=== PATIENT | female | born 1940 | race Caucasian/White ===

== ENCOUNTER → 2019-08-15 13:48 | Outpatient (BNVA) | payer MEDICARE, OTHER, SELFPAY | PROVIDERS: PCP Internal Medicine; Visit Provider Specialist | DX: R42 Dizziness and giddiness (principal); R26.9 Unspecified abnormalities of gait and mobility; G40.219 Localization-related (focal) (partial) symptomatic epilepsy and epileptic syndromes with complex partial seizures, intractable, without status epilepticus; G31.84 Mild cognitive impairment of uncertain or unknown etiology; Z96.89 Presence of other specified functional implants | CPT/HCPCS: 99205 ==

== ENCOUNTER 2019-08-15 16:02 | Outpatient (CLI) | payer MEDICARE, OTHER, SELFPAY ==
[2019-08-15 17:09] LABS: Vitamin B12 363 pg/mL (232-1245)
[2019-08-15 17:24] LABS: Folate Level 6.7 ng/mL (4.8-37.3)
[2019-08-20 14:21] LABS: Lacosamie (Vimpat) 15.6 mcg/mL
== END 2019-08-15 16:03 | disposition home or self-care (01) ==
LOC: LAB 16:09
PROVIDERS: PCP Internal Medicine; Visit Provider Specialist
DX: R20.0 Anesthesia of skin (principal); R56.9 Unspecified convulsions
CPT/HCPCS: 36415; 80299; 82607; 82746

== ENCOUNTER 2019-08-24 13:41 | Outpatient (CLI) | payer MEDICARE, OTHER, SELFPAY ==
--- NOTE | 2019-08-24 13:54 | XR_ITS ---
WS: [id number] XR soft tissue neck [id number] REASON FOR EXAM: VNS components FINDINGS: Stimulator electrodes are seen at the C6-C7 level on the left side overriding the articular surface set. The joints of Luschka show mild hypertrophic changes. Degenerated disc changes 3-4 4-5, C5-6.. XR/XR soft tissue neck [id number] IMPRESSION: Stimulator seen on the left side C6-C7 electrodes Degenerated disc changes C3-4, C4-C5, C5-C6.
--- NOTE | 2019-08-24 13:54 | XR_ITS ---
WS: [id number] XR chest 2V* [id number] REASON FOR EXAM: VNS components FINDINGS: A hiatal hernia is noted. A stimulator seen along the left chest wall extends to the see 6 7 vertebra as. The lung garza are well aerated. No pneumonia, pleural effusion, pulmonary edema, or mass effect. There is degenerate disc changes with remote compression in the mid thoracic area. XR/XR chest 2V* [id number] IMPRESSION: Negative chest for acute pathology Hiatal hernia Stimulator along the left chest wall.
== END 2019-08-24 13:42 | disposition home or self-care (01) ==
LOC: RADWPI 13:47
PROVIDERS: Family Provider Internal Medicine; PCP Internal Medicine; Visit Provider Licensed Practical Nurse
DX: Z96.89 Presence of other specified functional implants (principal); K44.9 Diaphragmatic hernia without obstruction or gangrene
CPT/HCPCS: 70360; 71046

== ENCOUNTER → 2019-08-31 14:25 | Outpatient (BNVA) | payer MEDICARE, OTHER, SELFPAY | PROVIDERS: Family Provider Internal Medicine; PCP Internal Medicine; Visit Provider Specialist | DX: G40.219 Localization-related (focal) (partial) symptomatic epilepsy and epileptic syndromes with complex partial seizures, intractable, without status epilepticus (principal) | CPT/HCPCS: 95816 ==

== ENCOUNTER 2019-09-06 11:49 | Outpatient (CLI) | payer MEDICARE, OTHER, SELFPAY ==
--- NOTE | 2019-09-06 14:30 | CT_ITS ---
WS: [id number] CT NECK WITHOUT CONTRAST. HISTORY: S/P VNS TECHNIQUE: Contiguous 5 mm axial images are performed through the neck without intravenous contrast. Sagittal and coronal reformats are also submitted. All CT scans at [facility] use at leas t one of these dose optimization techniques: automated exposure control; mA and/or kV adjustment per patient size (includes targeted exams where dose is matched to clinical indication); or iterative rec onstruction. CONTRAST: CONTRAST: None DLP: 1579.92 mGycm COMPARISON: 08/24/2019 Vagal nerve stimulator projects over the upper lateral LEFT thorax. Intact lead wire extends from the generator in the soft tissues over the LEFT pectoralis muscle. At the level of the clavicular heads the wire extends between the LEFT internal jugular vein and carotid artery. Stimulator wire is coiled in the LEFT neck lateral to the thyroid cartilage. The wire appears to be intact. The placement of t he wire is very similar to the radiograph of 08/24/2019. No soft tissue masses are noted within the ne ck. Visualized thyroid gland is negative. No compromise of the airway. Benign-appearing cervical virgen n lymph nodes. Visualized paranasal sinuses and mastoid air cells are normal. Lung apices are clear. Advanced degenerative changes in the mid cervical spine. Most significant at C 5-6. CT/CT neck wo con [id number] IMPRESSION: Vagal nerve stimulator lead wires and electrodes appear similar in position as the study of 08/24/2019. No discontinuity is identified.
== END 2019-09-06 11:50 | disposition home or self-care (01) ==
LOC: RADWPI 11:53
PROVIDERS: Family Provider Internal Medicine; PCP Internal Medicine; Visit Provider Specialist
DX: Z96.89 Presence of other specified functional implants (principal)
CPT/HCPCS: 70490

== ENCOUNTER 2019-09-19 06:16 | Day surgery (SDC) | payer MEDICARE, OTHER, SELFPAY ==
[2019-09-16 08:42] VITALS: BMI 26.6
[2019-09-19] VITALS (7 sets, daily range): BP systolic 125–153; BP diastolic 71–96; PULSE 89–110; RESP 13–20; TEMP 36.3–36.7; O2SAT 92–98
--- NOTE | 2019-09-19 06:56 | P.HPUD_ITS ---
Surgery/Procedure H&P Update DATE OF PROCEDURE: September 19, 2019 DATE H&P PERFORMED: 09/07/19 H&P UPDATE INFORMATION: I have reviewed H&P completed within last 30 days, H&P to be scanned into chart and H[place]P [place] in [facility] [place] date indicated PREOP DIAGNOSIS: Vagal nerve stimulator end of service PRIMARY INDICATION FOR PROCEDURE: Seizures PLANNED PROCEDURE: Operation Date: 09/19/19 07:00 Proposed Procedures Vagal Nerve stimulator pulse generator replacement.
--- NOTE | 2019-09-19 06:57 | PM.OP2 ---
Brief Operative Note: Date of procedure: 09/19/19 Pre-op diagnosis: Seizures Post-op diagnosis: same Procedure Done: Replacement of subcutaneous programmable pulse generator with connection to vagal nerve stimulation electrode array. Surgeon: Justo Alejo Estimated blood loss (mL): 10 Complications: None. Post-op Plan: PACU, then home per Ambulatory Surgery protocol. 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
[2019-09-19] MEDS: sodium chloride 0.9% 1,000 ML 30 ML IV (06:59)
[2019-09-19] MEDS: vancomycin 1,000 MG in sodium chloride 0.9% 250 ML 250 MG IV (07:05)
--- NOTE | 2019-09-19 07:39 | ANES.PREANE2 ---
Pre-Anesthetic Assessment Pre-Anesthetic Assessment: Height/Weight: Height 1.5 m Weight 59.874 kg Temp Pulse Resp BP Pulse Ox 97.9 F 93 18 150/96 97 09/19/19 06:30 09/19/19 06:30 09/19/19 06:30 09/19/19 06:30 09/19/19 06:30 Preop Diagnosis: Seizures Proposed Procedure: Operation Date: 09/19/19 07:00 Proposed Procedures p Vagal Nerve Revision 20527 Z45.42(Not Applicable) - Justo Alejo MD Was Beta Ke taken within 24 hours: N/A Last intake: Intake Last Liquid Date 09/18/19 Last Liquid Time 19:00 Last Solid Date 09/18/19 Last Solid Time 19:00 Social: Social History: No alcohol and No tobacco Exam: Pre-Anes Outpt Exam: alert, oriented x 3, clear to auscultation bilaterally and regular rate & rhythm Airway: Submandibular: WNL Cervical ROM: WNL MP: 1 Dentition: False Pulmonary: Pulmonary: None reported CV/HEM: CV/HEM: Arrythmia : : Chronic renal Insufficiency Hepatic: Hepatic: None reported GI: GI: GERD Metabolic: Metabolic: None reported Musc/skel: Musc/skel: None reported Neuropsych: Neuropsych: Seizure Anesthetic Plan: ASA status: 3 Anesthesia: General Meds/Allergies Current Medications: Current Medications Generic Name Dose Route Start Last Admin Trade Name Freq PRN Reason Stop Dose Admin Sodium Chloride 1,000 mls @ 30 ml s/hr 09/19/19 06:30 09/19/19 06:59 Sodium Chloride 0.9% IV 09/20/19 06:29 30 mls/hr .Q24H DUANE Administration PFSH Anesthesia PFSH: Medical History (Updated 09/05/19 @ 15:11 by Justo Alejo MD) Status post VNS (vagus nerve stimulator) placement Surgical History Status post placement of VNS (vagus nerve stimulation) device 09/28/2013 [facility] Family History Other CAD (coronary artery disease) Cancer Stroke Social History Smoking and tobacco status: never smoked Alcohol intake: never Lives independently: Yes Household members: spouse Marital status: Current occupational status: retired History of recent travel: No (travels from [facility]) Data Anesthesia Cardiac Studies: No Data to Display
--- NOTE | 2019-09-19 08:16 | SUR.PHASEI ---
0811 PATIENT TO PACU FROM OR. NO DISTRESS. DRESSING TO LEFT CHEST, CDI. SPO2 94% ON RA.
--- NOTE | 2019-09-19 08:55 | SUR.PHASEI ---
0831 PATIENT TO OPS. RR EVEN AND UNLABORED. DENIES NAUSEA, TOLERATING ICE CHIPS. TALKATIVE, DENIES PAIN.
--- NOTE | 2019-09-19 21:57 | PM.OP ---
Operative Report Date of procedure: September 19, 2019 Pre-op Diagnosis: Intractable epilepsy. Pre-op Diagnosis: Vagal nerve stimulator end of service Post-op diagnosis: same Procedure Done: Replacement of subcutaneous programmable pulse generator with connection to vagal nerve stimulation electrode arrays. Implants: VNS Therapy model 1000 pulse generator Specimens removed/disposition: TheraCoat DemiPulse Model 103 pulse generator. Pathology: other (pulse generator explant) Pathology: gross only Surgeon: Justo Alejo Anesthesia: General Estimated blood loss (mL): 10 IV fluids (mL): 700 Complications: None Condition: stable Disposition: PACU Brief History: The patient is a 79-year-old female with intractable epilepsy. She underwent vagal nerve stimulator implantation in 2013 at [facility]. Dr. Gunter, her managing neurologist, recently noted the vagal nerve stimulator was nearing end of service. She was referred for pulse generator replacement to allow continuation of vagal nerve stimulation therapy. After review of the diagnostic and treatment options with the risks/potential benefits/rationale for each, she requested to proceed with surgical replacement of the VNS pulse generator. Procedure: After routine preoperative evaluation and informed consent were obtained, the patient was taken to the Operating Room and placed under general anesthesia. The left anterolateral chest surgical scar was marked with a sterile skin marker. The area was scrubbed with Betadine and prepped with DuraPrep. Ioban surgical barrier was applied. The proposed incision site was infiltrated with 1% Xylocaine with Epinephrine. The vertical / anterior axillary line chest incision was made with a sharp knife and carried down into the subcutaneous tissues. Care was taken to avoid injury to the underlying device components. The pulse generator was delivered onto the anterior chest wall from the subcutaneous pocket. The setscrew was released and the pin on the lead tail was removed from the port on the pulse generator. The explanted pulse generator was sent to pathology for gross evaluation. The connector pin was advanced into the port on the replacement pulse generator. The set screw was secured with the torque wrench, and device interrogation was performed. The lead test was successful, showing no faults and acceptable lead impedance. The patient showed no bradycardia during lead test/device interrogation. Heart rate sensing was verified. The subcutaneous pocket was copiously irrigated with sterile saline. The pulse generator was placed within the subcutaneous pocket and anchored with a single 2-0 Silk suture. Excess lead was coiled deep/adjacent to the device, and was visually verified to be without kink or strain. The incision site was again copiously irrigated with antibiotic irrigation. Wound closure was performed in multiple layers. The deep dermis was closed with 2-0 Vicryl Plus in a simple interrupted fashion. Final skin closure was performed with running subcuticular 3-0 Vicryl Plus. Steri-Strips were applied, and a sterile dressing was placed. The device was programmed to the settings obtained from the explanted device. The patient was then awakened from general anesthesia by Anesthesia personnel. She was transferred onto the Recovery Room cart in the supine position. She was transported to the Postanesthesia Care Unit without incident. The patient tolerated the procedure well. All sponge, needle and instrument counts were correct at the completion of the procedure.
== END 2019-09-19 10:25 | disposition home or self-care (01) ==
PROVIDERS: Family Provider Internal Medicine; PCP Internal Medicine; Visit Provider Specialist
PROC: (CPT 64569; principal; 2019-09-19 07:00)
DX: Z45.42 Encounter for adjustment and management of neurostimulator (principal); G40.919 Epilepsy, unspecified, intractable, without status epilepticus; I10 Essential (primary) hypertension; Z86.73 Personal history of transient ischemic attack (TIA), and cerebral infarction without residual deficits; E55.9 Vitamin D deficiency, unspecified; Z82.49 Family history of ischemic heart disease and other diseases of the circulatory system; Z82.3 Family history of stroke
CPT/HCPCS: 61888; 12345; 88300; 96365; C1767; J0690; J2250; J2370; J2704; J3010; J3370; J3490; J7030; J7050

== ENCOUNTER → 2019-10-27 09:17 | Outpatient (BNVA) | payer MEDICARE, OTHER, SELFPAY | PROVIDERS: Family Provider Internal Medicine; PCP Internal Medicine; Visit Provider Specialist | DX: G40.219 Localization-related (focal) (partial) symptomatic epilepsy and epileptic syndromes with complex partial seizures, intractable, without status epilepticus (principal); G31.84 Mild cognitive impairment of uncertain or unknown etiology; R26.9 Unspecified abnormalities of gait and mobility; Z96.89 Presence of other specified functional implants | CPT/HCPCS: 99214 ==

== ENCOUNTER → 2020-01-18 12:59 | Outpatient (BNVA) | payer MEDICARE, OTHER, SELFPAY | PROVIDERS: Family Provider Internal Medicine; PCP Internal Medicine; Visit Provider Specialist | DX: G40.219 Localization-related (focal) (partial) symptomatic epilepsy and epileptic syndromes with complex partial seizures, intractable, without status epilepticus (principal); R26.9 Unspecified abnormalities of gait and mobility; Z96.89 Presence of other specified functional implants | CPT/HCPCS: 99213 ==

== ENCOUNTER → 2020-07-18 13:34 | Outpatient (BNVA) | payer MEDICARE, OTHER, SELFPAY | PROVIDERS: Family Provider Internal Medicine; PCP Internal Medicine; Visit Provider Specialist | DX: G40.219 Localization-related (focal) (partial) symptomatic epilepsy and epileptic syndromes with complex partial seizures, intractable, without status epilepticus (principal); Z96.82 Presence of neurostimulator | CPT/HCPCS: 95971; 99214 ==

== ENCOUNTER → 2021-02-26 11:50 | Outpatient (BNVA) | payer MEDICARE, OTHER, SELFPAY | PROVIDERS: Family Provider Internal Medicine; PCP Internal Medicine; Visit Provider Specialist | DX: G40.219 Localization-related (focal) (partial) symptomatic epilepsy and epileptic syndromes with complex partial seizures, intractable, without status epilepticus (principal) | CPT/HCPCS: 95971; 99213; 99214 ==

== ENCOUNTER → 2022-05-22 14:56 | Outpatient (BNVA) | payer MEDICARE, OTHER, SELFPAY | PROVIDERS: Family Provider Internal Medicine; PCP Internal Medicine; Visit Provider Specialist | DX: G40.219 Localization-related (focal) (partial) symptomatic epilepsy and epileptic syndromes with complex partial seizures, intractable, without status epilepticus (principal); R26.9 Unspecified abnormalities of gait and mobility; Z96.82 Presence of neurostimulator; E87.1 Hypo-osmolality and hyponatremia; Z45.42 Encounter for adjustment and management of neurostimulator | CPT/HCPCS: 95970; 99213 ==

== ENCOUNTER → 2022-09-03 15:16 | Outpatient (BNVA) | payer MEDICARE, OTHER, SELFPAY | PROVIDERS: Family Provider Internal Medicine; PCP Internal Medicine; Visit Provider Specialist | DX: G40.219 Localization-related (focal) (partial) symptomatic epilepsy and epileptic syndromes with complex partial seizures, intractable, without status epilepticus (principal); Z96.82 Presence of neurostimulator | CPT/HCPCS: 99214 ==

== ENCOUNTER → 2023-06-10 09:38 | Outpatient (BNVA) | payer MEDICARE, OTHER, SELFPAY | PROVIDERS: Family Provider Internal Medicine; PCP Internal Medicine; Visit Provider Specialist | DX: G40.219 Localization-related (focal) (partial) symptomatic epilepsy and epileptic syndromes with complex partial seizures, intractable, without status epilepticus (principal); Z96.89 Presence of other specified functional implants | CPT/HCPCS: 99214 ==

== ENCOUNTER → 2023-09-18 11:14 | Outpatient (BNVA) | payer MEDICARE, OTHER, SELFPAY | PROVIDERS: Family Provider Internal Medicine; Visit Provider Specialist | DX: G40.219 Localization-related (focal) (partial) symptomatic epilepsy and epileptic syndromes with complex partial seizures, intractable, without status epilepticus (principal); Z96.89 Presence of other specified functional implants; R03.0 Elevated blood-pressure reading, without diagnosis of hypertension | CPT/HCPCS: 99214 ==

== ENCOUNTER → 2023-12-30 10:44 | Outpatient (BNVA) | payer MEDICARE, OTHER, SELFPAY | PROVIDERS: Family Provider Internal Medicine; Visit Provider Specialist | DX: Z96.89 Presence of other specified functional implants (principal); G40.219 Localization-related (focal) (partial) symptomatic epilepsy and epileptic syndromes with complex partial seizures, intractable, without status epilepticus; G40.109 Localization-related (focal) (partial) symptomatic epilepsy and epileptic syndromes with simple partial seizures, not intractable, without status epilepticus; R03.0 Elevated blood-pressure reading, without diagnosis of hypertension; G31.84 Mild cognitive impairment of uncertain or unknown etiology | CPT/HCPCS: 95970; 99214 ==

== ENCOUNTER → 2024-09-13 11:42 | Outpatient (BNVA) | payer MEDICARE, OTHER, SELFPAY | PROVIDERS: Family Provider Internal Medicine; Visit Provider Specialist | DX: G40.219 Localization-related (focal) (partial) symptomatic epilepsy and epileptic syndromes with complex partial seizures, intractable, without status epilepticus (principal); Z96.89 Presence of other specified functional implants; R03.0 Elevated blood-pressure reading, without diagnosis of hypertension; G40.109 Localization-related (focal) (partial) symptomatic epilepsy and epileptic syndromes with simple partial seizures, not intractable, without status epilepticus; G31.84 Mild cognitive impairment of uncertain or unknown etiology | CPT/HCPCS: 99215 ==

== ENCOUNTER → 2024-11-03 11:01 | Outpatient (BNVA) | payer MEDICARE, OTHER, SELFPAY | PROVIDERS: Family Provider Internal Medicine; Visit Provider Specialist | DX: G40.109 Localization-related (focal) (partial) symptomatic epilepsy and epileptic syndromes with simple partial seizures, not intractable, without status epilepticus (principal); G40.219 Localization-related (focal) (partial) symptomatic epilepsy and epileptic syndromes with complex partial seizures, intractable, without status epilepticus; R03.0 Elevated blood-pressure reading, without diagnosis of hypertension; Z96.89 Presence of other specified functional implants; G31.84 Mild cognitive impairment of uncertain or unknown etiology | CPT/HCPCS: 95970; 99214 ==